=== PATIENT | male | born 1995 | race Caucasian/White ===

== ENCOUNTER 2024-09-09 21:37 | Emergency (ER) | payer MEDICAID ==
[~2024-09-09] VITALS: Ht 177.8 cm; Wt 77.3 kg
[2024-09-09 21:49] VITALS: BP 102/51; PULSE 72; RESP 18; TEMP 98.1; O2SAT 95
--- NOTE | 2024-09-09 22:16 | RADIOLOGY REPORT ---
Procedure: DI WRIST, COMPLETE (3VW MIN) 09/09/2024 09:57 PM TECHNIQUE: DI WRIST, COMPLETE (3VW MIN) Indication: WRIST PAIN Comparison: None FINDINGS: Bones: No acute fracture or dislocation. Joint spaces are maintained. Soft tissues: Unremarkable. No radiopaque foreign body. IMPRESSION: 1. No acute osseous abnormality.
== END 2024-09-10 00:14 | disposition left against medical advice (07) ==
LOC: ER 21:38
DX: M25.531 Pain in right wrist (principal); Z53.21 Procedure and treatment not carried out due to patient leaving prior to being seen by health care provider
CPT/HCPCS: 73110